=== PATIENT | male | born 1990 | race Caucasian/White ===

== ENCOUNTER 2019-12-30 18:35 | Emergency (ER) | payer BC, OTHER ==
[~2019-12-30] VITALS: Ht 167.6 cm; Wt 108.9 kg
[2019-12-30] MEDS ORDERED: NAPROSYN500 MG PO (21:11)
[2019-12-30] MEDS ORDERED: NORFLEX100 MG PO (21:11)
[2019-12-30 21:30] VITALS: BP 122/66
== END 2019-12-30 21:30 | disposition home or self-care (01) ==
LOC: ER 18:35
DX: R07.89 Other chest pain (principal); F17.210 Nicotine dependence, cigarettes, uncomplicated